=== PATIENT | female | born 1975 | race Caucasian/White ===

== ENCOUNTER 2020-08-13 16:43 | Emergency (ER) | payer OTHER ==
[~2020-08-13 16:43] MED LIST: MUCINEX600 MG PO; PREDNISONE10 MG PO; TESSALON PERLE100 MG PO; ZITHROMAX250 MG PO
[2020-08-13] MEDS ORDERED: IBUPROFEN800 MG PO (20:45)
[2020-08-13] MEDS ORDERED: CYCLOBENZAPRINE5 MG PO (20:45)
== END 2020-08-13 20:52 | disposition home or self-care (01) ==
LOC: ER1 16:43
DX: M54.12 Radiculopathy, cervical region (principal)
CPT/HCPCS: 72125; 96372; 99283; J1885